=== PATIENT | female | born 1970 | race Caucasian/White ===

== ENCOUNTER 2020-07-26 09:15 | Outpatient (NON) | payer OTHER, SELFPAY ==
[2020-07-26 21:45] LABS: SARS-CoV-2 RNA PCR Negative
== END 2020-07-26 09:16 ==
LOC: ANHCOVIDDT 09:16
PROVIDERS: PCP Internal Medicine; Visit Provider Internal Medicine
DX: R68.89 Other general symptoms and signs (principal); Z20.822 Contact with and (suspected) exposure to COVID-19
CPT/HCPCS: C9803; U0003; U0005